=== PATIENT | male | born 1940 | race Caucasian/White ===

== ENCOUNTER 2022-01-10 16:22 | Inpatient (IN) | payer OTHER ==
[~2022-01-10] VITALS: Ht 177.8 cm; Wt 88.5 kg
[2022-01-10 16:22] VITALS: BP_SYST 112
[2022-01-10] MEDS ORDERED: CROM10DR7 BOTH EYES (17:07)
[2022-01-10] MEDS ORDERED: INSU100I35 SQ (17:07)
[2022-01-10] MEDS ORDERED: OFLO5DRO6 RIGHT EYE (17:07)
[2022-01-10] MEDS ORDERED: FOLI0.8T42 PO (17:07)
[2022-01-10] MEDS ORDERED: NIFE90TA48 PO (17:07)
[2022-01-10] MEDS ORDERED: CAT.1 PO (17:07)
[2022-01-10] MEDS ORDERED: METO100T PO (17:07)
[2022-01-10] MEDS ORDERED: OMEP20CA4 PO (17:07)
[2022-01-10] MEDS ORDERED: TAMS-11 PO (17:07)
[2022-01-10] MEDS ORDERED: ARTT BOTH EYES (17:07)
[2022-01-10] MEDS ORDERED: FURO-150 PO (17:07)
[2022-01-10] MEDS ORDERED: LIP80 PO (17:07)
[2022-01-10] MEDS ORDERED: INSNPH7030 SQ ×2 (17:07)
[2022-01-10] MEDS ORDERED: LIRA0.6P SQ (17:07)
[2022-01-10] MEDS ORDERED: KETO5DRO RIGHT EYE (17:07)
[2022-01-10] MEDS ORDERED: TRIA15CR3 (17:07)
[2022-01-10] MEDS ORDERED: PRED5DRO25 RIGHT EYE (17:07)
[2022-01-10] MEDS ORDERED: TIMO5DRO15 RIGHT EYE (17:07)
[2022-01-10] MEDS ORDERED: ECO81 PO (17:07)
[2022-01-10 17:25] LABS: HEMATOCRIT 44.1 % (36-54); MEAN CORPUSCULAR VOLUME 92 fL (79.0-98.0); RED BLOOD CELL COUNT(AUTO) 4.82 MIL/uL (4.2-6.2)
[2022-01-10 17:26] LABS: ANION GAP 13 (5-15); CALCIUM 10.1 mg/dL (8.4-11.0); CHLORIDE 105 mmol/L (98-107); CREATININE 1.34 mg/dL (0.55-1.30); GLUCOSE 99 mg/dL (70-99); PLATELET COUNT (AUTO) 234 K/uL (130-430); POTASSIUM 4.1 mmol/L (3.5-5.1); RED CELL DISTRIBUTION WIDTH 15.2 % (9.0-15.0); UREA NITROGEN, BLOOD 16 mg/dL (8-21)
[2022-01-10 17:27] LABS: BASOPHILS % (AUTO) 0.2 % (0.0-2.0); EOSINOPHILS % (AUTO) 0.2 % (0.0-4.0); LYMPHOCYTES # (AUTO) 1.3 K/uL (1.0-5.5); MONOCYTES # (AUTO) 0.9 K/uL (0.0-1.0); MONOCYTES % (AUTO) 10.2 % (1.7-9.3); NEUTROPHILS # (AUTO) 6.5 K/uL (1.8-7.7); NEUTROPHILS % (AUTO) 74.4 % (40.0-70.0)
[2022-01-10 17:34] LABS: ALANINE AMINOTRANSFERASE 39 U/L (12-78); ALBUMIN 3.8 g/dL (3.4-4.8); ASPARTATE AMINOTRANSFERASE 25 U/L (10-37); TOTAL BILIRUBIN 0.9 mg/dL (0.0-1.0)
[2022-01-10 17:39] LABS: WHITE BLOOD COUNT (AUTO) 8.7 K/uL (4.8-10.8)
[2022-01-10] MEDS ORDERED: ACETAMINOPHEN 500 MG TABLET PO PRN (21:15)
[2022-01-10] MEDS ORDERED: ONDANSETRON HCL 4 MG/2 ML VIAL IVP PRN (21:15)
[2022-01-10] MEDS ORDERED: ASPIRIN 81 MG TAB.CHEW ONE (21:29)
[2022-01-10] MEDS ORDERED: ASPIRIN 81 MG TAB.CHEW PO ONE (21:45)
[2022-01-10 22:58] VITALS: BP_SYST 140
[2022-01-11] MEDS: NACL 0.9% 1,000 ML IV SCH ×2 (00:16→09:45)
[2022-01-11 07:30] VITALS: BP_SYST 143
[2022-01-11] MEDS: ASPIRIN 81 MG TAB.CHEW PO SCH (08:45)
[2022-01-11] MEDS ORDERED: NITROGLYCERIN 0.4 MG/HR PATCH.TD24 TD SCH (09:00)
[2022-01-11 12:18] VITALS: BP_SYST 125
[2022-01-11 15:25] VITALS: BP_SYST 126
[2022-01-11] MEDS ORDERED: RIVAROXABAN 10 MG TABLET PO ONE (19:30)
[2022-01-11 20:00] VITALS: BP_SYST 134
[2022-01-11] MEDS: METOPROLOL TARTRATE 25 MG TABLET PO SCH (20:49)
[2022-01-11] MEDS ORDERED: METOPROLOL TARTRATE 25 MG TABLET PO SCH (21:00)
[2022-01-12] VITALS: BP_SYST 130
[2022-01-12 07:45] LABS: BASOPHILS % (AUTO) 0.4 % (0.0-2.0); EOSINOPHILS # (AUTO) 0.2 K/uL (0.0-0.4); EOSINOPHILS % (AUTO) 2.6 % (0.0-4.0); HEMATOCRIT 42.7 % (36-54); LYMPHOCYTES # (AUTO) 2.2 K/uL (1.0-5.5); LYMPHOCYTES % (AUTO) 29.9 % (20.5-51.5); MEAN CORPUSCULAR VOLUME 93 fL (79.0-98.0); MONOCYTES # (AUTO) 0.8 K/uL (0.0-1.0); NEUTROPHILS # (AUTO) 4.2 K/uL (1.8-7.7); NEUTROPHILS % (AUTO) 56.1 % (40.0-70.0); PLATELET COUNT (AUTO) 213 K/uL (130-430); RED BLOOD CELL COUNT(AUTO) 4.58 MIL/uL (4.2-6.2); RED CELL DISTRIBUTION WIDTH 15.6 % (9.0-15.0); WHITE BLOOD COUNT (AUTO) 7.5 K/uL (4.8-10.8)
[2022-01-12 08:00] VITALS: BP_SYST 154
[2022-01-12 08:24] LABS: ANION GAP 9 (5-15); CALCIUM 9.9 mg/dL (8.4-11.0); CHLORIDE 106 mmol/L (98-107); CREATININE 0.91 mg/dL (0.55-1.30); GLUCOSE 84 mg/dL (70-99); POTASSIUM 4.3 mmol/L (3.5-5.1); UREA NITROGEN, BLOOD 13 mg/dL (8-21)
[2022-01-12 08:31] LABS: ALANINE AMINOTRANSFERASE 29 U/L (12-78); ALBUMIN 3.3 g/dL (3.4-4.8); ASPARTATE AMINOTRANSFERASE 20 U/L (10-37); THYROID STIMULATING HORMONE 3.31 uIu/mL (0.36-3.74); TOTAL BILIRUBIN 1.4 mg/dL (0.0-1.0)
[2022-01-12] MEDS: ASPIRIN 81 MG TAB.CHEW PO SCH (08:51)
[2022-01-12] MEDS: METOPROLOL TARTRATE 25 MG TABLET PO SCH (08:53)
[2022-01-12 10:22] VITALS: BP_SYST 154
[2022-01-12] MEDS ORDERED: RIVA20TA PO (11:17)
[2022-01-12] MEDS ORDERED: METO25TA3 PO (11:18)
[2022-01-12] MEDS ORDERED: RIVAROXABAN 10 MG TABLET PO ONE (11:30)
[2022-01-12 11:58] LABS: CHOLESTEROL 220 mg/dL (<200); TRIGLYCERIDES 244 mg/dL (30-150)
[2022-01-12 11:59] LABS: HDL CHOLESTEROL 43 mg/dL (>45); LDL CHOLESTEROL 142 mg/dL (<100)
[2022-01-12 12:25] LABS: HEMOGLOBIN 14.1 g/dL (14.0-18.0); MEAN CORPUSCULAR HEMOGLOBIN 31 pg (27-31); MEAN CORPUSCULAR HGB CONC 34 % (32-36)
[2022-01-13] MEDS ORDERED: METOPROLOL SUCCINATE 25 MG TAB.SR.24H (TOPROL XL) PO SCH (09:00)
[2022-01-13] MEDS ORDERED: RIVAROXABAN 10 MG TABLET PO SCH (18:00)
== END 2022-01-12 13:00 | disposition home or self-care (01) | DRG 641 ==
LOC: SED 16:22 → STU 21:04
PROVIDERS: ADMIT Family Medicine; ATTEND Family Medicine
DX: E86.0 Dehydration (principal); N17.9 Acute kidney failure, unspecified; I48.0 Paroxysmal atrial fibrillation; I12.9 Hypertensive chronic kidney disease with stage 1 through stage 4 chronic kidney disease, or unspecified chronic kidney disease; N18.2 Chronic kidney disease, stage 2 (mild); E66.9 Obesity, unspecified; E78.5 Hyperlipidemia, unspecified; Z20.822 Contact with and (suspected) exposure to COVID-19; J44.9 Chronic obstructive pulmonary disease, unspecified; I10 Essential (primary) hypertension; R55 Syncope and collapse; T67.5XXA Heat exhaustion, unspecified, initial encounter; X58.XXXA Exposure to other specified factors, initial encounter; Y93.89 Activity, other specified; Z68.28 Body mass index [BMI] 28.0-28.9, adult; Y92.89 Other specified places as the place of occurrence of the external cause; Y99.8 Other external cause status
CPT/HCPCS: 36415; 71045; 80053; 80061; 83735; 83880; 84443; 84484; 85025; 93005; 93306; 99285; G0378; J2405